=== PATIENT | female | born 1995 | race Caucasian/White ===

== ENCOUNTER 2020-03-22 16:35 | Emergency (ER) | payer OTHER ==
[~2020-03-22] VITALS: Ht 167.6 cm; Wt 65.8 kg
[2020-03-22] MEDS ORDERED: EFFEXOR XR75 MG PO (17:18)
[2020-03-22] MEDS ORDERED: EFFEXOR XR37.5 MG PO (17:18)
[2020-03-22] MEDS ORDERED: XANAX0.5 MG PO (17:18)
== END 2020-03-22 18:40 | disposition home or self-care (01) ==
LOC: ED 16:35
DX: F41.0 Panic disorder [episodic paroxysmal anxiety] (principal); Z79.899 Other long term (current) drug therapy
CPT/HCPCS: 99283

== ENCOUNTER 2020-03-23 07:57 | Emergency (ER) | payer OTHER ==
[~2020-03-23] VITALS: Ht 167.6 cm; Wt 65.8 kg
[~2020-03-23 07:57] MED LIST: EFFEXOR XR37.5 MG PO; EFFEXOR XR75 MG PO; XANAX0.5 MG PO
--- OUTSIDE RECORDS SUMMARY | 2020-03-23 08:00 | XMS ---
PreManage Notification: JASVIR VEGA Security [place] Picker Events No recent Security Events currently on file CRITERIA MET - [facility] - 2 Visits in 30 Days CARE PROVIDERS There are no care providers on record at this time. Catrina has no Care Guidelines for this patient. [facility] VISIT COUNT (12 MO.) [facility] NOTE: Visits indicate total known visits. ED/[facility] [place] VISIT TRACKING (12 MO.) 03/23/2020 07:58 [facility] [place] TYPE: Emergency COMPLAINT: - ANXIETY ATTACK 03/22/2020 16:36 [facility] [place] TYPE: Emergency COMPLAINT: - ANXIETY INPATIENT VISIT TRACKING (12 MO.) No inpatient visits to display in this time frame [email or web address]
== END 2020-03-23 10:15 | disposition home or self-care (01) ==
LOC: ED 07:57
DX: F41.0 Panic disorder [episodic paroxysmal anxiety] (principal); F43.9 Reaction to severe stress, unspecified; Z79.899 Other long term (current) drug therapy
CPT/HCPCS: 99283